=== PATIENT | male | born 1935 | race Caucasian/White ===

== ENCOUNTER 2017-05-30 21:42 | Emergency (ER) | payer SELFPAY ==
[~2017-05-30] VITALS: Ht 185.4 cm; Wt 77.0 kg
[2017-05-30] MEDS ORDERED: ALBUTEROL SULFATE 2.5 MG/3 ML NPPB ONE (22:30)
[2017-05-30] MEDS ORDERED: ALBUTEROL SULFATE 2.5 MG/3 ML ONE (22:32)
[2017-05-30 22:42] LABS: HEMATOCRIT 44.5 % (39.2-51.8); HEMOGLOBIN 14.3 g/dL (13.7-18.0); WHITE BLOOD COUNT 8.3 x10^3/uL (3.4-10)
[2017-05-30 22:55] LABS: BLOOD UREA NITROGEN 17 mg/dL (7-18)
[2017-05-30 23:03] LABS: IS PT STATUS REG ER OR PRE ER? YES
[2017-05-31 00:06] VITALS: BP 124/73
== END 2017-05-31 00:11 | disposition home or self-care (01) ==
LOC: ED 23:59
DX: J44.1 Chronic obstructive pulmonary disease with (acute) exacerbation (principal); Z59.0 Homelessness
CPT/HCPCS: 36415; 71010; 80048; 82040; 84484; 85025; 93005; 94640; 99285; J7512; J7613